=== PATIENT | male | born 1990 | race Caucasian/White ===

== ENCOUNTER 2022-06-02 03:49 | Emergency (ER) | payer BC ==
[2022-06-02 04:36] LABS: AMPHETAMINES,URINE NEGATIVE (NEGATIVE); BARBITURATES,URINE NEGATIVE (NEGATIVE); BENZODIAZEPINE,URINE NEGATIVE (NEGATIVE); MDMA (ECSTASY), URINE NEGATIVE (NEGATIVE); METHADONE,URINE NEGATIVE (NEGATIVE); METHAMPHETAMINES,URINE NEGATIVE (NEGATIVE); OPIATES,URINE NEGATIVE (NEGATIVE); OXYCODONE,URINE NEGATIVE (NEGATIVE); PHENCYCLIDINE,URINE NEGATIVE (NEGATIVE); TCA,URINE NEGATIVE (NEGATIVE)
[2022-06-02 04:43] LABS: ANION GAP 10.7 mEq/L (7-13); CHLORIDE,CL 108 mmol/L (98-107); SODIUM,NA 144 mmol/L (136-145)
[2022-06-02 04:45] LABS: ACETAMINOPHEN 0 ug/mL (10-30 (Therapeutic)); ESTIMATED GFR 92 mL/min (>=60)
[2022-06-02] MEDS ORDERED: Iopamidol 612 MG/ML 100 ML Bottle IVPUSH ONE (04:55)
[2022-06-02] MEDS ORDERED: HYDROmorphone 0.5 MG/0.5 ML Syringe IVPUSH ONE (04:56)
[2022-06-02] MEDS ORDERED: Ondansetron 4 MG/2 ML SDV IVPUSH ONE (04:57)
[2022-06-02] MEDS ORDERED: Sodium Chloride 0.9% 1,000 ML IV ONE (05:00)
[2022-06-02] MEDS ORDERED: Ketorolac 30 MG/ML SDV IVPUSH ONE (06:11)
[2022-06-02] MEDS ORDERED: Tamsulosin 0.4 MG Cap.ER PO ONE (06:16)
[2022-06-02] MEDS ORDERED: Ketorolac 30 MG/ML SDV ONE (06:23)
[2022-06-02] MEDS ORDERED: Tamsulosin 0.4 MG Cap.ER ONE ×2 (06:23→06:24)
[2022-06-02] MEDS ORDERED: Acetaminophen/HYDROcodone 325-10 MG Tab PO ONE (06:41)
[2022-06-02] MEDS ORDERED: Acetaminophen/HYDROcodone 325-10 MG Tab ONE (06:58)
== END 2022-06-02 07:16 | disposition home or self-care (01) ==
LOC: DL.ED 03:49
DX: N13.2 Hydronephrosis with renal and ureteral calculous obstruction (principal)
CPT/HCPCS: 36415; 74177; 80053; 80143; 80305; 80307; 81001; 82150; 83605; 83690; 85025; 96361; 96374; 96375; 99284; A9270; J1170; J1885; J2405; J7030